=== PATIENT | female | born 1970 | race Caucasian/White ===

== ENCOUNTER 2017-09-05 17:33 | Emergency (ER) | payer MEDICAID, OTHER ==
[~2017-09-05] VITALS: Ht 152.4 cm; Wt 61.5 kg
[~2017-09-05 17:33] MED LIST: IBUP-1542 PO
[2017-09-05 17:39] VITALS: Ht 152.4 cm; Wt 61.5 kg
--- NOTE | 2017-09-05 18:31 | ERD ---
ER Documentation Chief Complaint Date/Time DATE: 09/05/17 TIME: 18:27 Chief Complaint throat pain, nasal congestion, dizziness HPI 7-year-old female presents to emergency department with complaint of sinus congestion and blister in throat . pt reports chronic symptoms and blisters in mouth , current symptoms x 3 days. It also reports that she has fatigue, history of anemia, is requesting a physical exam. Teaching provided at this point that the emergency room to routine workups, she has been told she has anemia she should follow-up with her primary care physician for evaluation and treatment. Patient verbalizes understanding. ROS All systems reviewed and are negative except as per history of present illness. Medications Home Meds Active Scripts Ibuprofen* (Motrin*) 600 Mg Tab, 600 MG PO Q6, #30 TAB Prov:LISA RIOS PA-C 01/26/16 Allergies Allergies: Coded Allergies: No Known Allergy (Unverified , 09/05/17) PMhx/Soc Hx Alcohol Use: No Hx Substance Use: No Hx Tobacco Use: No Physical Exam Vitals Vital Signs Date Time Temp Pulse Resp B/P Pulse Ox O2 Delivery O2 Flow Rate FiO2 09/05/17 17:39 99.0 78 19 137/76 100 Physical Exam Const: Well-nourished well-appearing well-hydrated 47-year-old female in no acute distress Head: Atraumatic Eyes: Normal Conjunctiva PERRLA, EOMI ENT: Panic membranes bilaterally dull, right tympanic membrane retracted, nasal mucosa edematous, turbinates +2, pale, no bleeding points or crest noted, pharynx is erythremic, tonsils +2, uvula midline without shift, rises and falls with pronation no exudate, no blisters, no lesions, no petechiae Neck: Full range of motion..~ No meningismus. No palpable cervical chain no Resp: Clear to auscultation bilaterally no rales wheezes or rhonchi Cardio: Abd: Skin: Back: Ext: Neur: Awake and alert Psych: Normal Mood and Affect Procedures/MDM This 47-year-old female presents to emergency department for chronic sinus congestion and a evaluation of anemia. Reports that she has blisters in her throat, symptoms have been ongoing for the last year. His emergency room course includes history and physical exam, no blisters, lesions, ulcers, or petechiae seen in throat, no postnasal drip, turbinate edema noted Crestor bleeding points, teaching provided in [place] that we would not be able to do routine blood work she needs to follow-up with her primary care physician, plan to treat with Claritin and Flonase nasal spray. Instructed to call schedule an appointment with her physician to be reevaluated in the next 7 days. Patient is stable with no new complaints during ER course, clinically there is no current evidence to suggest meningitis, serial sinusitis, viral sinusitis, HSV, herpangina, strep throat, tonsillar abscess, sinus mass, or any other emergent condition appearing to require further evaluation or hospitalization. I feel the patient is stable for discharge at this time. I have discussed results, examination findings, the treatment plan with the patient and family present prior to discharge. Indications for emergent reevaluation, side effects of medication were also discussed. All questions were answered. Patient verbalizes understanding and agrees with plan of care. Departure Diagnosis: Primary Impression: Nasal congestion Condition: Good Patient Instructions: Chronic Sinusitis [facility] Additional Instructions: Thank you for for coming to the [facility] for your care today. Please ask your nurse or provider if you have questions about your care today and do not leave until all your questions have been answered. Please use any medications given as directed and follow-up with your doctor (or the doctor you were referred to) in the next 2-3 days. If you do not have a primary care doctor you may follow up at the [facility] (listed below). You may also use motrin and tylenol as needed for fever and/or pain unless instructed otherwise by your provider or nurse. Indications for more urgent follow-up have been discussed, but you may return to the Emergency Department at ANY time for any worrisome or worsening symptoms. If you have abdominal pain, please know that no test or exam you received is perfect and you should follow up within 8 hours for continued pain. If you had any imaging studies today, such as an X-Ray or CT Scan, these studies will be reviewed later by a radiologist. You will be called if there are important findings that were not identified today, so make sure the contact information you provided at registration is correct. If you received any narcotic pain control medicine today, such as Vicodin, Morphine or Dilaudid, your coordination and judgment may be affected for a number of hours. Please do not drive or operate heavy machinery, and you may want someone to assist you at home. If you were given a prescription for narcotic medication, be aware that it is very addictive- use sparingly and only if necessary. KACEY SNYDER Sep 05, 2017 18:31
[2017-09-05] MEDS ORDERED: LORA10CA PO (19:02)
[2017-09-05] MEDS ORDERED: FLUT9.9S NASAL (19:03)
== END 2017-09-05 19:13 | disposition home or self-care (01) ==
LOC: FTE 17:33
DX: R09.81 Nasal congestion (principal)
CPT/HCPCS: 99283